=== PATIENT | male | born 1995 | race Caucasian/White ===

== ENCOUNTER 2018-12-23 08:14 | Emergency (ER) | payer OTHER ==
[2018-12-23 08:27] VITALS: BP 146/70; PULSE 60; TEMP 98.1; BMI 26.8
--- NOTE | 2018-12-23 09:22 | PDOC ---
History of Present Illness - General Chief Complaint: Laceration Stated Complaint: HEAD INJURY History Source: Patient Exam Limitations: No Limitations - History of Present Illness Initial Comments: Pt is a 23 yo M, with no significant PMH, who is presenting with a small laceration over his left eyebrow after slipping in the shower and hitting his eyebrow on the glass door. He had minimal blood loss, and was able to apply pressure with a clean gauze pad. Pt did not fall to the ground, had no LOC and is not on any blood thinner medications. He did not take any medication prior to coming to the ER. Pt denies any precipitating fevers/chills, headache, vision changes, syncope, chest pain, palpitations, SOB, nausea/vomiting, abdominal pain, urinary symptoms, diarrhea/constipation, or leg swelling. Pts PCP is in [place] where he lives, and he is visiting for an event with his friends. Social: Pt denies any cigarette, alcohol, or drug use. Pt recently traveled from [place] (main residence). Denies any sick contacts. Surgical: no relevant history. Family: no relevant history. 12/23/18 10:14 Past History - Travel Traveled outside of the country in the last 30 days: No Close contact w/someone who was outside of country & ill: No - Past Medical History Allergies/Adverse Reactions: Allergies Allergy/AdvReac Type Severity Reaction Status Date / Time No Known Allergies Allergy Verified 12/23/18 08:20 Home Medications: Ambulatory Orders NK [No Known Home Medication] 12/23/18 COPD: No - Immunization History Immunization Up to Date: No - Suicide/Smoking/Psychosocial Hx Smoking History: Never smoked Review of Systems - Review of Systems Able to Perform ROS?: Yes Is the patient limited Panamanian proficient: No Constitutional: Yes: Weight Stable. No: Chills, Diaphoresis, Fever, Loss of Appetite, Malaise, Weakness HEENTM: No: Blurred Vision, Recent change in vision, Double Vision, Ear Discharge, Nose Pain, Nose Congestion, Nose Bleeding, Hearing Loss, Throat Pain , Throat Swelling, Mouth Pain, Mouth Swelling Respiratory: No: Cough, Shortness of Breath Cardiac (ROS): No: Chest Pain, Palpitations, Syncope ABD/GI: No: Constipated, Diarrhea, Nausea, Poor Appetite, Poor Fluid Intake, Vomiting, Indigestion : No: Burning, Dysuria, Urgency Musculoskeletal: No: Back Pain, Joint Pain, Joint Swelling, Muscle Pain, Muscle Weakness, Neck Pain, Joint Stiffness Integumentary: Yes: See HPI. No: Bruising, Erythema, Lumps, Rash Neurological: No: Headache, Numbness, Paresthesia, Weakness, Unsteady Gait, Ataxia, Dizziness Psychiatric: No: Sleep Pattern Change, Change in Appetite Endocrine: No: Increased Urine, Change in Weight Hematologic/Lymphatic: No: Anemia, Blood Clots, Easy Bleeding, Easy Bruising All Other Systems: Reviewed and Negative *Physical Exam - Vital Signs Last Vital Signs Temp Pulse Resp BP Pulse Ox 98.1 F 60 16 146/70 99 12/23/18 08:20 12/23/18 08:20 12/23/18 08:20 12/23/18 08:20 12/23/18 08:20 - Physical Exam Comments: Vitals stable, pt afebrile. Pt in NAD, normal body habitus. PE showed pt alert and oriented. farm facility manager generally intact, muscular strength and sensation intact. Facial sensation and facial movements intact, good strength with eyebrow movements. Small (~1 cm), superficial linear laceration over L eyebrow. Bleeding controlled. Does not extend into muscle or fat pad of eyelid. No erythema or drainage surrounding the site, no foreign bodies present. Eyes PERRLA, EOMI. Oropharynx without erythema or exudates, no LAD b/l. No nasal congestion, hearing intact. Clear heart sounds, S1/S2, no JVD, b/l pedal edema, or heart murmur. Clear lung sounds, no respiratory distress, wheezes, crackles, or accessory muscle use. No abdominal or CVA tenderness to palpation, no rebound , no guarding. Abdomen soft, non-distended, and with normoactive bowel sounds. Skin without jaundice or rash. Laceration repaired using sterile technique, bleeding easily controlled. Applied 5, size 6.0 sutures to the area. Rinsed with 30 cc pressure wash with sterile saline. Good EOM, strength/symmetry of facial movements pre and post sutures. Please see procedure note. 12/23/18 10:21 Moderate Sedation - Procedure Monitoring Vital Signs: Procedure Monitoring Vital Signs Temperature 98.1 F 12/23/18 08:20 Pulse Rate 60 12/23/18 08:20 Respiratory Rate 16 12/23/18 08:20 Blood Pressure 146/70 12/23/18 08:20 O2 Sat by Pulse Oximetry (%) 99 12/23/18 08:20 Procedures - Laceration/Wound Repair Left Lateral Eye Wound Length: to 2.5 cm Wound Explored: clean Wound's Depth, Shape: superficial, linear Irrigated w/ Saline: Yes Betadine Prep: Yes Anesthesia: 1% Lidocaine Amount of Anesthetic (ccs): 2 Wound Debrided: minimal Wound Repaired With: Sutures Suture Size/Type: 6:0 Number of Sutures: 5 Layer Closure: No Sterile Dressing Applied: Yes Splint Applied: No Sling Applied: No Medical Decision Making - Medical Decision Making Pt was seen in [facility], for which I performed the laceration repair and examined the patient. Pt presenting with a laceration over his left eyebrow after slipping in the shower and hitting his eyebrow on the glass door. He had minimal blood loss, and was able to apply pressure with a clean gauze pad. Pt did not fall to the ground, had no LOC and is not on any blood thinner medications. He did not take any medication prior to coming to the ER. Pt denies any precipitating fevers/chills, headache, vision changes, syncope, chest pain, palpitations, SOB, nausea/vomiting, abdominal pain, urinary symptoms , diarrhea/constipation, or leg swelling. Vitals stable, pt afebrile. Pt in NAD, normal body habitus. PE showed pt alert and oriented. farm facility manager generally intact, muscular strength and sensation intact. Facial sensation and facial movements intact, good strength with eyebrow movements. Small (~1 cm), superficial linear laceration over L eyebrow. Bleeding controlled. Does not extend into muscle or fat pad of eyelid. No erythema or drainage surrounding the site, no foreign bodies present. Eyes PERRLA, EOMI. Oropharynx without erythema or exudates, no LAD b/l. No nasal congestion, hearing intact. Clear heart sounds, S1/S2, no JVD, b/l pedal edema, or heart murmur. Clear lung sounds, no respiratory distress, wheezes, crackles, or accessory muscle use. No abdominal or CVA tenderness to palpation, no rebound , no guarding. Abdomen soft, non-distended, and with normoactive bowel sounds. Skin without jaundice or rash. Laceration repaired using sterile technique, bleeding easily controlled. Applied 5, size 6.0 sutures to the area. Rinsed with 30 cc pressure wash with sterile saline. Good EOM, strength/symmetry of facial movements pre and post sutures. Please see procedure note. Provided boostrix tetanus shot (last booster was ~10 years ago). Pt denies pain control at this time. Pt can be discharged to home with follow-up. Pt advised to follow-up with PCP in 5 days for removal of sutures. Strict return precautions provided with pt understanding. 12/23/18 09:26 12/23/18 10:12 *DC/Admit/Observation/Transfer Diagnosis at time of Disposition: Eyebrow laceration Qualifiers: Encounter type: initial encounter Laterality: left Qualified Code(s): S01.112A - Laceration without foreign body of left eyelid and periocular area, initial encounter - Discharge Dispostion Disposition: HOME Condition at time of disposition: Good Decision to Admit order: No - Referrals Referrals: [facility] [Provider Group] - Patient Instructions Printed Discharge Instructions: DI for Laceration Repair Additional Instructions: You were seen in the ER today for a laceration to your eyebrow. Please keep the area dry for the first 48 hours, afterwards you can wash the area with warm water and soap. Please follow-up with your primary care doctor in 5 days to discuss your visit and have your sutures removed. Please return to the ER if you have any worsening pain that does not improve with tylenol or ibuprofen, redness or drainage of pus from the area, development of fevers or chills, loss of consciousness, inability to tolerate food or fluids, or any other concerns. - Post Discharge Activity
[2018-12-23] MEDS ORDERED: DIPHTH,PERTUSS(ACELL),TET 0.5 ML DISP.SYRIN IM ONE ×2 (09:24→09:26)
== END 2018-12-23 09:35 | disposition home or self-care (01) ==
LOC: JERFT 08:14
PROC: 3E0234Z Introduction of Serum, Toxoid and Vaccine into Muscle, Percutaneous Approach (ICD-10-PCS; principal; 2018-12-23)
PROC: 0HQ1XZZ Repair Face Skin, External Approach (ICD-10-PCS; 2018-12-23)
DX: S01.112A Laceration without foreign body of left eyelid and periocular area, initial encounter (principal); W18.2XXA Fall in (into) shower or empty bathtub, initial encounter; Y93.E1 Activity, personal bathing and showering; Y92.89 Other specified places as the place of occurrence of the external cause; Y99.8 Other external cause status
CPT/HCPCS: 12011-25; 90471; 90715; 99281-25